=== PATIENT | female | born 1990 | race Caucasian/White ===

== ENCOUNTER 2018-04-14 22:38 | Emergency (ER) | payer OTHER ==
[2018-04-14 22:46] VITALS: BP 138/83
--- NOTE | 2018-04-14 22:49 | ED Physician Documentation ---
PD HPI FEMALE - Stated complaint Stated Complaint: FEM - Chief complaint Chief Complaint: UTI - History obtained from History obtained from: Patient - History of Present Illness Timing - onset: Yesterday Timing - details: Gradual onset Associated symptoms: Dysuria, Urinary frequency, Hematuria. No: Fever, Back pain Contributing factors: No: Similar symptoms before: Diagnosis (similar to previous UTI, which progressed to pyelonephritis) Recently seen: Not recently seen - Additional information Additional information: c/o burning dysuria, urinary frequency since yesterday. Today developed hematuria. Review of Systems Constitutional: denies: Fever GI: denies: Abdominal Pain : reports: Dysuria, Frequency, Hematuria Musculoskeletal: denies: Back pain PD PAST MEDICAL HISTORY - Past Medical History GI: Ulcers - Past Surgical History Past Surgical History: Yes HEENT: Tonsil/Adenoidectomy - Present Medications Home Medications: Ambulatory Orders Medication Instructions Recorded Confirmed Amoxicillin/Potassium Clav 1 each PO BID #14 tablet 03/05/14 [Augmentin 875-125 Tablet] Hydrocodone/Acetaminophen 1 - 2 tab PO Q4-6H PRN #15 tablet 03/05/14 [Hydrocodon-Acetaminophen 5-325] Ibuprofen 600 mg 03/05/14 03/05/14 Sucralfate [Carafate] 03/05/14 03/05/14 Nitrofurantoin Monohyd/M-Cryst 100 mg PO BID #9 capsule 04/14/18 [Macrobid 100 mg Capsule] Phenazopyridine [Pyridium] 200 mg PO TID 3 Days tablet 04/14/18 - Allergies Allergies/Adverse Reactions: Allergies Allergy/AdvReac Type Severity Reaction Status Date / Time cefaclor [From Ceclor] Allergy Hives Verified 04/14/18 22:43 diphenhydramine HCl * Allergy Hives Verified 04/14/18 22:43 [From Benadryl] - Social History Does the pt smoke?: No Smoking Status: Never smoker Does the pt drink ETOH?: No Does the pt have substance abuse?: No PD ED PE NORMAL - Vitals Vital signs reviewed: Yes - General General: Alert and oriented X 3, No acute distress, Well developed/nourished - Abdomen Abdomen: Soft, Non tender - Back Back: No CVA TTP Results - Vitals Vitals: Vital Signs - 24 hr 04/14/18 22:43 Temperature 36.5 C Heart Rate 58 L Respiratory 16 Rate Blood Pressure 138/83 H O2 Saturation 100 Oxygen O2 Source Room air - Labs Labs: Laboratory Tests 04/14/18 22:48 Urine Color YELLOW Urine Clarity HAZY Urine pH 5.5 Ur Specific [place] 1.015 Urine Protein NEGATIVE Urine Glucose (UA) NEGATIVE Urine Ketones NEGATIVE Urine Occult Blood LARGE H Urine Nitrite NEGATIVE Urine Bilirubin NEGATIVE Urine Urobilinogen 0.2 (NORMAL) Ur Leukocyte Esterase SMALL H Urine RBC TNTC H Urine WBC 4-5 Ur Squamous Epith Cells RARE Squamous Urine Bacteria Many H Ur Microscopic Review INDICATED Urine Culture Comments INDICATED Urine HCG, Qual NEGATIVE PD MEDICAL DECISION MAKING - ED course Complexity details: reviewed results, considered differential, d/w patient - Sepsis Event Vital Signs: Vital Signs - 24 hr 04/14/18 22:43 Temperature 36.5 C Heart Rate 58 L Respiratory 16 Rate Blood Pressure 138/83 H O2 Saturation 100 Oxygen O2 Source Room air Departure - Departure Disposition: 01 Home, Self Care Clinical Impression: Urinary tract infection Qualifiers: Urinary tract infection type: acute cystitis Hematuria presence: with hematuria Qualified Code(s): N30.01 - Acute cystitis with hematuria Condition: Good Instructions: ED UTI Cystitis Female Follow-Up: PING TAYLOR [Primary Care Provider] - (3-5 days if symtpoms persist) Prescriptions: Nitrofurantoin Monohyd/M-Cryst [Macrobid 100 mg Capsule] 100 mg PO BID #9 capsule Phenazopyridine [Pyridium] 200 mg PO TID 3 Days tablet Discharge Date/Time: 04/14/18 23:50
[2018-04-14 23:04] LABS: BILIRUBIN,URINE NEGATIVE (NEGATIVE); GLUCOSE, URINE (UA) NEGATIVE (NEGATIVE); KETONES,URINE (UA) NEGATIVE (NEGATIVE); LEUKOCYTE ESTERASE, URINE SMALL (NEGATIVE); NITRITE,URINE NEGATIVE (NEGATIVE); OCCULT BLOOD,URINE LARGE (NEGATIVE); PH,URINE 5.5 PH (5.0-7.5); PROTEIN,URINE NEGATIVE (NEGATIVE); UROBILINOGEN,URINE 0.2 (NORMAL) E.U./dL (NORMAL)
[2018-04-14 23:06] LABS: CLARITY,URINE HAZY (CLEAR); HCG UR QUAL NEGATIVE
[2018-04-14 23:19] LABS: RBC,URINE TNTC /HPF (0-5)
[2018-04-14 23:20] LABS: BACTERIA,URINE Many /HPF (None Seen); SQUAMOUS EPITHELIAL CELL,UR RARE Squamous (<= Few)
[2018-04-14] MEDS ORDERED: PHENAZOPYRIDINE 100 MG TABLET PO STA (23:39)
[2018-04-14] MEDS ORDERED: NITROFURANTOIN MACRO 100 MG CAPSULE PO STA (23:39)
== END 2018-04-14 23:50 | disposition home or self-care (01) ==
LOC: ED 22:38
DX: N30.01 Acute cystitis with hematuria (principal)
CPT/HCPCS: 81001; 81025; 87086; 87181; 99283; A9270; 81003

== ENCOUNTER 2018-05-15 13:10 | Outpatient (CLI) | payer OTHER ==
--- NOTE | 2018-05-15 18:37 | Ultrasound Report ---
Reason: ENCOUNTER FOR SUPERVISON OF OTHER NORMAL Procedure Date: 05/15/2018 Accession Number: [id number] / [id number] Procedure: US - OB First Trimester CPT Code: FULL RESULT: EXAM: FIRST TRIMESTER OBSTETRIC ULTRASOUND (Less than 11 weeks) EXAM DATE: 05/15/2018 02:09 PM. CLINICAL HISTORY: Encounter for supervision of other normal . LMP: Unknown. COMPARISONS: None. TECHNIQUE: Transabdominal and transvaginal ultrasound examination with static image documentation. CLINICAL DATES: EGA 7 weeks 6 days with AMARILYS 12/26/2018 based on LMP. ASSESSMENT: Gestational Sac: Single intrauterine. Embryo: CRL (crown-rump length) 5.8 mm = 6 weeks 3 days. Cardiac activity: 122 beats per minute. Yolk sac: 3.5 mm. Amniotic fluid: Not accurately assessed at this gestational age. Early placenta: Not visible at this gestational age. Other: Small perigestational collection measuring 6 x 6 x 4 mm noted adjacent to the superior margin of the gestational sac. MATERNAL STRUCTURES: Uterus: Anteverted. Unremarkable. Cervix: Closed. Right Ovary/Adnexa: The ovary measures 4.5 x 1.9 x 1.6 cm, volume 7.1 cc. Unremarkable. Left Ovary/Adnexa: The ovary measures 4.7 x 2.9 x 2.6 cm, volume 18.5 cc. No concerning adnexal mass. Several left ovarian follicles with the largest measuring 1.7 x 1.3 x 1.4 cm. Free Fluid: None. Other: None. IMPRESSION: 1. Single viable intrauterine at EGA 6 weeks 3 days with AMARILYS 01/05/2019 based on crown-rump length, which is concordant with clinical dates. 2. Assigned dating is AMARILYS 01/05/2019 based on LMP. 3. Small perigestational hemorrhage measuring 6 x 6 x 4 mm. 4. Simple left ovarian follicles. Both ovaries and adnexa are otherwise unremarkable. RADIA
== END 2018-05-15 13:11 | disposition home or self-care (01) ==
LOC: DI 13:10
PROVIDERS: ATTEND Family Medicine
DX: Z34.81 Encounter for supervision of other normal pregnancy, first trimester (principal); Z3A.01 Less than 8 weeks gestation of pregnancy
CPT/HCPCS: 76801

== ENCOUNTER 2020-05-04 23:00 | Emergency (ER) | payer OTHER ==
[2020-05-04] MEDS ORDERED: PROPARACAINE 0.5% OPHTH DROPS 15 ML RIGHTEYE STA (23:15)
--- NOTE | 2020-05-04 23:30 | ED Physician Documentation ---
PD HPI OPHTHO - Stated complaint Stated Complaint: R EYE INJ - Chief complaint Chief Complaint: Heent - History obtained from History obtained from: Patient - History of Present Illness Timing - onset: Today (tonight) Timing - details: Abrupt onset Location: Right Quality / character: Aching Associated symptoms: Tearing, FB sensation Contributing factors: Blunt trauma. No: Wears glasses, Wears contacts Recently seen: Not recently seen - Additional information Additional information: patient was accidentally struck in her right eye by her child's thumb; she has right eye pain and FB sensation since that time. Patient is approximately 17 weeks . Review of Systems Eyes: reports: Irritation. denies: Loss of vision, Decreased vision, Photophobia, Discharge PD PAST MEDICAL HISTORY - Past Medical History Past Medical History: Yes GI: Ulcers - Past Surgical History Past Surgical History: Yes HEENT: Tonsil/Adenoidectomy - Present Medications Home Medications: Ambulatory Orders Medication Instructions Recorded Confirmed HYDROcod/ACETAM 5/325 [Heath 5/325] 1 each PO Q6H PRN #7 tablet 05/04/20 - Allergies Allergies/Adverse Reactions: Allergies Allergy/AdvReac Type Severity Reaction Status Date / Time cefaclor [From Ceclor] Allergy Hives Verified 05/04/20 23:12 diphenhydramine HCl * Allergy Hives Verified 05/04/20 23:12 [From Benadryl] - Social History Does the pt smoke?: No Smoking Status: Never smoker Does the pt drink ETOH?: No Does the pt have substance abuse?: No - Immunizations Immunizations are current?: Yes PD ED PE NORMAL - Vitals Vital signs reviewed: Yes - General General: Alert and oriented X 3, Well developed/nourished, Other (appears uncomfortable; maintains closed right eye, tearing noted from right eye) - HEENT HEENT: PERRL, EOMI PD ED PE EXPANDED - HEENT HEENT Visual: 1 - abrasion (fluorescein uptake) - Eyes Eyes: Normal eyelids, Injected conj/sclera (mild), Fluorescein uptake, Anterior chambers clear Results - Vitals Vitals: Vital Signs - 24 hr 05/04/20 05/05/20 23:08 00:00 Temperature 37 C Heart Rate 90 80 Respiratory 18 16 Rate Blood Pressure 110/59 L 112/65 O2 Saturation 99 99 Oxygen O2 Source Room air PD MEDICAL DECISION MAKING - ED course Complexity details: considered differential, d/w patient Departure - Departure Disposition: 01 Home, Self Care Clinical Impression: Corneal abrasion Qualifiers: Encounter type: initial encounter Laterality: right Qualified Code(s): S05.01XA - Injury of conjunctiva and corneal abrasion without foreign body, right eye, initial encounter Condition: Good Instructions: ED Eye Injury Corneal Abrasion Follow-Up: PING TAYLOR [Primary Care Provider] - Prescriptions: HYDROcod/ACETAM 5/325 [Heath 5/325] 1 each PO Q6H PRN #7 tablet PRN Reason: Pain Comments: Use the antibiotic drops (provided in the emergency department tonight) as follows: 1 drop in right eye 4 times per day for 7 days Discharge Date/Time: 05/05/20 00:05
[2020-05-04] MEDS ORDERED: POLYMYXIN B/TRIMETH OPHTH DROPS RIGHTEYE STA (23:49)
[2020-05-04] MEDS ORDERED: HYDROcod/ACET 5/325 Prepack 4 PO STA (23:49)
[2020-05-05 00:10] VITALS: BP 112/65
== END 2020-05-05 00:05 | disposition home or self-care (01) ==
LOC: ED 23:00
DX: O9A.212 Injury, poisoning and certain other consequences of external causes complicating pregnancy, second trimester (principal); S05.01XA Injury of conjunctiva and corneal abrasion without foreign body, right eye, initial encounter; W50.0XXA Accidental hit or strike by another person, initial encounter; Z3A.17 17 weeks gestation of pregnancy
CPT/HCPCS: 99282; 99283; A9270; J3490